=== PATIENT | female | born 1945 | race African-American/Black ===

== ENCOUNTER 2021-10-27 10:32 | Inpatient (IN) ==
[2021-10-27 11:28] LABS: Basophils % 0.2 % (0.0-0.8); Eosinophils % 0.2 % (0.00-10.9); Hemoglobin 7.7 GM/DL (12.0-16.0); Immature Granulocytes % 0.5 %; Immature Granulocytes Absolute 0.03 #; Lymphocytes % 16.2 % (21.3-54.2); Mean Corpuscular HGB Conc 30.8 GM/DL (32-36); Mean Corpuscular Volume 97.3 FL (87-102); Mean Platelet Volume 10.8 FL (9.6-12.0); Monocytes # 0.3 10*3/uL (0.11-0.8); Monocytes % 5.3 % (1.7-12.7); NRBC # 0.03 10*3/uL; Neutrophils % 77.6 % (38.7-73.9); Red Blood Count 2.57 MC/CUMM (3.8-5.5); Red Cell Distribution Width 16.3 % (9.3-17.3); White Blood Count 6.4 T/CUMM (4-12)
[2021-10-27 11:32] LABS: Platelet Count 20 T/CUMM (130-400)
[2021-10-27 11:57] LABS: Albumin 2.6 G/DL (3.4-5.0); Bilirubin,Total 0.9 MG/DL (0.20-1.00); Calcium 8.6 MG/DL (8.5-10.1); Total Protein 5.7 G/DL (6.4-8.2)
[2021-10-27 12:43] LABS: Bacteria,Urine Occasional /HPF (Few); Glucose,Urine (UA) Negative (Negative); Hyaline Casts,Urine 16 /LPF (0-3); Ketones,Urine Trace mg/dL (Negative); Mucus,Urine Occasional /LPF (Occasional); Nitrite,Urine Negative (Negative); Protein,Urine Trace mg/dL (Negative); RBC,Urine 1 /HPF (0-4); Squamous Epithelial Cell,Urine Occasional /HPF (0-10); Urine Appearance Clear (Clear); Urine Color Yellow (Yellow); Urine Specific Gravity 1.015 (1.001-1.035)
[2021-10-27 12:44] LABS: Bilirubin,Urine Small mg/dL (Negative); Blood, Urine Trace mg/dL (Negative)
[2021-10-27] MEDS ORDERED: GLUCAGON 1 MG VIAL IM PRN (13:08)
[2021-10-27] MEDS ORDERED: hydrALAZINE 20 MG/1 ML VIAL IV PRN (13:08)
[2021-10-27] MEDS ORDERED: SODIUM CHLORIDE 0.9% 1,000 ML IV PRN ×2 (13:13→13:19)
[2021-10-27] MEDS ORDERED: POTASSIUM CHLORIDE 20 MEQ TABLET PO STA (13:55)
[2021-10-27] MEDS ORDERED: MAGNESIUM SULF RIDER 2 GM/50 ML PREMIX IV PRN (13:56)
[2021-10-27] MEDS ORDERED: MAGNESIUM SULF RIDER 4 GM/100 ML PREMIX IV PRN (13:56)
[2021-10-27] MEDS ORDERED: DEXTROSE 10% 250 ML BAG IV PRN (13:57)
[2021-10-27] MEDS ORDERED: ACETAMINOPHEN 325 MG TABLET PO PRN (15:45)
[2021-10-27] MEDS: ATORVASTATIN 10 MG TABLET PO SCH (21:25)
[2021-10-28 05:51] LABS: Basophils % 0.4 % (0.0-0.8); Eosinophils % 0.5 % (0.00-10.9); Hematocrit 25.3 VOL% (35.7-47.0); Hemoglobin 7.8 GM/DL (12.0-16.0); Immature Granulocytes % 0.4 %; Immature Granulocytes Absolute 0.02 #; Mean Corpuscular HGB Conc 30.8 GM/DL (32-36); Mean Corpuscular Volume 95.8 FL (87-102); Mean Platelet Volume 12.8 FL (9.6-12.0); Monocytes # 0.4 10*3/uL (0.11-0.8); Monocytes % 6.4 % (1.7-12.7); NRBC # 0.02 10*3/uL; Neutrophils % 74.3 % (38.7-73.9); Red Blood Count 2.64 MC/CUMM (3.8-5.5); Red Cell Distribution Width 17.2 % (9.3-17.3); White Blood Count 5.5 T/CUMM (4-12)
[2021-10-28 06:00] LABS: Platelet Count 15 T/CUMM (130-400)
[2021-10-28 06:14] LABS: Risk Ratio 2.44; VLDL Cholesterol 22.2 MG/DL
[2021-10-28 06:25] LABS: Calcium 8.1 MG/DL (8.5-10.1); Osmolality,Calculated 288.7 MOS/KG (273-304); Potassium 3.1 MMOL/L (3.5-5.1); Thyroid Stimulating Hormone 1.4 uIU/ml (0.358-3.74)
[2021-10-28 06:41] LABS: Anisocytosis 1+; Band Neutrophils 1 % (0-10); Lymphocytes 13 % (20-55); Nucleated Red Blood Cells 1 (0-5); Total Cells Counted 100
[2021-10-28 06:42] LABS: Macrocytosis 1+
[2021-10-28] MEDS: ONDANSETRON 4 MG/2 ML VIAL IV PRN (07:44)
[2021-10-28] MEDS ORDERED: SODIUM CHLORIDE 0.9% 1,000 ML IV PRN (08:03)
[2021-10-28] MEDS: FUROSEMIDE 20 MG TABLET PO SCH (09:51)
[2021-10-28] MEDS: PANTOPRAZOLE 40 MG TABLET PO SCH (09:51)
[2021-10-28] MEDS: carvediloL 25 MG TABLET PO SCH (09:51)
[2021-10-28] MEDS: POTASSIUM CHLORIDE 20 MEQ TABLET PO SCH ×2 (09:51→12:51)
[2021-10-28] MEDS ORDERED: POTASSIUM CHLORIDE 20 MEQ TABLET PO ONE (12:37)
[2021-10-28 16:43] LABS: Hematocrit 27.6 VOL% (35.7-47.0); Hemoglobin 8.6 GM/DL (12.0-16.0); Platelet Count 64 T/CUMM (130-400)
[2021-10-28] MEDS: ATORVASTATIN 10 MG TABLET PO SCH (21:32)
[2021-10-29 05:09] LABS: Basophils % 0.2 % (0.0-0.8); Eosinophils % 0.5 % (0.00-10.9); Hematocrit 29.2 VOL% (35.7-47.0); Hemoglobin 9.1 GM/DL (12.0-16.0); Immature Granulocytes % 0.5 %; Immature Granulocytes Absolute 0.03 #; Lymphocytes # 1.1 10*3/uL (1.4-4.0); Lymphocytes % 17.4 % (21.3-54.2); Mean Corpuscular HGB Conc 31.2 GM/DL (32-36); Mean Corpuscular Volume 96.7 FL (87-102); Monocytes # 0.5 10*3/uL (0.11-0.8); Monocytes % 7.3 % (1.7-12.7); Neutrophils % 74.1 % (38.7-73.9); Platelet Count 47 T/CUMM (130-400); Red Blood Count 3.02 MC/CUMM (3.8-5.5); White Blood Count 6.5 T/CUMM (4-12)
[2021-10-29 05:36] LABS: Albumin 2.3 G/DL (3.4-5.0); Bilirubin,Total 1.3 MG/DL (0.20-1.00); Calcium 8.2 MG/DL (8.5-10.1); Osmolality,Calculated 292.4 MOS/KG (273-304); Potassium 3.8 MMOL/L (3.5-5.1); Total Protein 5.1 G/DL (6.4-8.2)
[2021-10-29 05:39] LABS: Band Neutrophils 1 % (0-10); Eosinophils 3 % (0-10); Lymphocytes 15 % (20-55); Platelet Estimate Decreased; Total Cells Counted 100
[2021-10-29 05:40] LABS: Anisocytosis 1+; Macrocytosis Slight
[2021-10-29] MEDS: ONDANSETRON 4 MG/2 ML VIAL IV PRN (06:24)
[2021-10-29] MEDS: PANTOPRAZOLE 40 MG TABLET PO SCH (09:26)
[2021-10-29] MEDS: FUROSEMIDE 20 MG TABLET PO SCH (09:26)
[2021-10-29] MEDS: carvediloL 25 MG TABLET PO SCH (09:26)
[2021-10-29] MEDS: ATORVASTATIN 10 MG TABLET PO SCH (20:55)
[2021-10-30 05:07] LABS: Basophils % 0.1 % (0.0-0.8); Eosinophils % 0.4 % (0.00-10.9); Hematocrit 29.2 VOL% (35.7-47.0); Hemoglobin 8.9 GM/DL (12.0-16.0); Immature Granulocytes % 0.3 %; Immature Granulocytes Absolute 0.02 #; Lymphocytes # 0.9 10*3/uL (1.4-4.0); Lymphocytes % 13.7 % (21.3-54.2); Mean Corpuscular HGB Conc 30.5 GM/DL (32-36); Mean Corpuscular Volume 98.6 FL (87-102); Mean Platelet Volume 12.2 FL (9.6-12.0); Monocytes # 0.6 10*3/uL (0.11-0.8); Monocytes % 8.3 % (1.7-12.7); Neutrophils % 77.2 % (38.7-73.9); Red Blood Count 2.96 MC/CUMM (3.8-5.5); Red Cell Distribution Width 17.2 % (9.3-17.3); White Blood Count 6.7 T/CUMM (4-12)
[2021-10-30 05:11] LABS: Platelet Count 35 T/CUMM (130-400)
[2021-10-30 05:34] LABS: Albumin 2.2 G/DL (3.4-5.0); Calcium 8.3 MG/DL (8.5-10.1); Osmolality,Calculated 289.6 MOS/KG (273-304); Potassium 4.1 MMOL/L (3.5-5.1)
[2021-10-30 05:37] LABS: Lymphocytes 9 % (20-55); Platelet Estimate Decreased; Total Cells Counted 100
[2021-10-30] MEDS ORDERED: DIAZEPAM 5 MG TABLET PO ONE (08:54)
[2021-10-30 09:09] LABS: INR 1.4; PT Patient Result 15.3 SECS (10.1-12.1)
[2021-10-30] MEDS: carvediloL 25 MG TABLET PO SCH (10:43)
[2021-10-30] MEDS: PANTOPRAZOLE 40 MG TABLET PO SCH (10:43)
[2021-10-30] MEDS: FUROSEMIDE 20 MG TABLET PO SCH (10:43)
[2021-10-30] MEDS: ATORVASTATIN 10 MG TABLET PO SCH (22:01)
[2021-10-31 06:01] LABS: Basophils % 0.2 % (0.0-0.8); Eosinophils % 0.6 % (0.00-10.9); Hematocrit 28.6 VOL% (35.7-47.0); Hemoglobin 8.8 GM/DL (12.0-16.0); Immature Granulocytes % 0.5 %; Immature Granulocytes Absolute 0.03 #; Lymphocytes % 15.4 % (21.3-54.2); Mean Corpuscular HGB Conc 30.8 GM/DL (32-36); Mean Corpuscular Volume 98.6 FL (87-102); Mean Platelet Volume 12.5 FL (9.6-12.0); Monocytes # 0.5 10*3/uL (0.11-0.8); Monocytes % 7.5 % (1.7-12.7); Neutrophils % 75.8 % (38.7-73.9); Platelet Count 40 T/CUMM (130-400); Red Cell Distribution Width 17.3 % (9.3-17.3); White Blood Count 6.4 T/CUMM (4-12)
[2021-10-31 06:18] LABS: % Iron Saturation 33.1 % (18-50); Albumin 2.1 G/DL (3.4-5.0); Bilirubin,Total 1.1 MG/DL (0.20-1.00); Calcium 8.1 MG/DL (8.5-10.1); Ferritin 1240.9 ng/mL (8-252); Osmolality,Calculated 287.7 MOS/KG (273-304); Total Protein 4.9 G/DL (6.4-8.2)
[2021-10-31 06:22] LABS: Platelet Estimate Decreased
[2021-10-31] MEDS: carvediloL 25 MG TABLET PO SCH (08:45)
[2021-10-31] MEDS: PANTOPRAZOLE 40 MG TABLET PO SCH (08:45)
[2021-10-31] MEDS: FUROSEMIDE 20 MG TABLET PO SCH (08:45)
[2021-10-31] MEDS: ATORVASTATIN 10 MG TABLET PO SCH (21:00)
[2021-11-01] MEDS: FUROSEMIDE 20 MG TABLET PO SCH (09:33)
[2021-11-01] MEDS: PANTOPRAZOLE 40 MG TABLET PO SCH (09:33)
[2021-11-01] MEDS: carvediloL 25 MG TABLET PO SCH (09:34)
[2021-11-01 12:25] VITALS: BP 142/64
== END 2021-11-01 14:55 | disposition home or self-care (01) | DRG 813 ==
LOC: N.ED 10:32 → N.EDINP 13:08 → SUATTDRO 13:08 → N.TELES 16:04
PROVIDERS: ADMIT Internal Medicine; ATTEND Internal Medicine Geriatric Medicine